=== PATIENT | male | born 1995 | race Caucasian/White ===

== ENCOUNTER 2024-03-21 12:43 | Emergency (ER) | payer SELFPAY | END 2024-03-21 15:17 | disposition home or self-care (01) | LOC: CSHERS 12:43 | DX: K40.90 Unilateral inguinal hernia, without obstruction or gangrene, not specified as recurrent (principal); N50.811 Right testicular pain; Z75.8 Other problems related to medical facilities and other health care | CPT/HCPCS: 76870 ==